=== PATIENT | female | born 1960 | race Caucasian/White ===

== ENCOUNTER → 2019-11-20 | Outpatient (CLI) | payer OTHER ==
[~2019-11-20] MED LIST: AMLODIPINE BESY10 MG PO; ESTRACE42.5 GM VAG; HYDROCODON-ACE1 EAC7 PO; MULTIVITAMINS1 EAC7 PO; NEURONTIN 300M300 M2 PO; OMEPRAZOLE40 MG PO; OXYBUTYNIN 5 MG5 M2 PO
== END ==
LOC: M.LAB 08:59
PROVIDERS: ATTEND Surgery
DX: Z01.812 Encounter for preprocedural laboratory examination (principal); Z20.828 Contact with and (suspected) exposure to other viral communicable diseases

== ENCOUNTER 2019-11-26 06:15 | Observation (INO) | payer OTHER ==
[~2019-11-26] VITALS: Ht 162.6 cm; Wt 97.1 kg
--- NOTE | ~2019-11-26 | OP ---
[facility] [address] [place] [address] OPERATIVE REPORT Name: GENEVIEVE QUEZADA Room: [address] [place]#: [id number] Admission: 11/26/19 Attend Phys: Raf Sykes Discharge: Date of : 62 Report #: [id number] THIS REPORT FOR: //name// cc: Jose Gage John E. DO ~ CC: Jose Sykes DATE OF SERVICE: 11/26/2019 PREOPERATIVE DIAGNOSIS: Hiatal hernia with gastroesophageal reflux disease. POSTOPERATIVE DIAGNOSIS: Hiatal hernia with gastroesophageal reflux disease. OPERATION: Laparoscopic repair of hiatal hernia with mesh implantation with partial fundoplication. SURGEON: Raf Sykes MD ANESTHESIA: General. ESTIMATED BLOOD LOSS: Minimal. SPECIMEN: None. DESCRIPTION OF PROCEDURE: After informed consent was obtained, the patient was brought to the operating room and placed supine. SCDs were placed and working, preoperative antibiotics were administered, general anesthesia was induced. The abdomen was prepped and draped in the usual sterile fashion. A 1 mm incision was made in the left upper quadrant. Veress needle was inserted. Pneumoperitoneum was established. Left periumbilical 12 mm trocar was placed under direct vision. I then placed two right sided trocars and one left-sided trocar all under direct vision. The Nathansen retractor was inserted and reflected the liver anteriorly and superiorly. The pars flaccida was then grasped. It was incised and a LigaSure dissection was carried out superiorly to the kenna, right kenna. The phrenoesophageal ligament was incised with the cautery. The left kenna was identified. I worked to dissect around the distal esophagus. She had hiatal hernia, which was fully reduced. A Stuart drain was placed on the distal esophagus. The short gastric vessels were then ligated by retracting the stomach to the right. The short gastric vessels were ligated using the LigaSure device. There was excellent hemostasis. This allowed for floppy movement of the fundus. A cruroplasty was then performed. This was done with Phasix ST mesh. A 1 [place] [address] OPERATIVE REPORT Name: GENEVIEVE QUEZADA Room: [address] [place].#: [id number] Admission: 11/26/19 Attend Phys: Raf Sykes Discharge: Date of : 62 Report #: [id number] pledgets were cut out and placed on each side of the crura. A 2-0 Ethibond suture was placed through the pledgets and the crura to perform the cruroplasty. This is not too loose or too tight. The fundus of the stomach was then brought posteriorly around the distal esophagus. This was a 270-degree partial wrap. It was fairly loose. Two sutures were placed on each side of the esophagus, 1 cm apart, again this was a 270-degree wrap. The right side of the fundoplication was tacked to the right kenna with a single 2-0 Ethibond suture. The Amy drain was removed. The liver was then placed back into its anatomic position. The ports were removed under direct vision. The 12 mm port site was closed with a [id number] 0 Vicryl. Skin was closed with 4-0 Monocryl. Incisions were dressed with sterile gauze. Sterile dressings were applied. COMPLICATIONS: None. DISPOSITION: The patient was taken to recovery in satisfactory condition. By: [id number] Sykes MD /silver
[2019-11-26 06:40] VITALS: BP 106/62
[2019-11-26 06:46] LABS: HEMATOCRIT 40.7 % (37.0-47.0); MCH 32.3 pg (26.0-34.0); MCHC 34.3 g/dL (28.0-37.0); MCV 94.1 fL (80.0-100.0); RBC 4.33 mil/uL (4.20-5.00); RDW-CV 13.2 % (10.5-14.5); WBC 6.7 thou/uL (4.0-11.0)
[2019-11-26 07:04] LABS: CALCIUM 8.3 mg/dL (8.5-10.1); CREATININE 0.9 mg/dL (0.6-1.3); POTASSIUM 3.9 mmol/L (3.5-5.1)
[2019-11-26 13:10] VITALS: BP 140/71
--- NOTE | 2019-11-26 13:41 | EKG ---
[place] [address] ELECTROCARDIOGRAM REPORT Name: GENEVIEVE QUEZADA Room: [address]#: [id number] Admission: 11/26/19 Attend Phys: Raf Kent Discharge: Date of : 62 Date of Service: 11/26/19 0650 Report #: [id number] THIS REPORT FOR: //name// [facility] Test Date: 2019-11-26 Test Time: 06:50:34 Pat Name: GENEVIEVE QUEZADA Department: Room: [facility] Gender: F [facility]ceiver [facility] 1960 Requested By: Raf Sykes Order Number: [id number] Ysabel MD: Jesus Buckner Measurements Intervals Rebuck Rate: 57 P: 45 DC: 165 QRS: 11 QRSD: 96 T: 18 QT: 456 QTc: 444 Interpretive Statements Sinus rhythm No previous ECG available for comparison Electronically Signed On 11-26-2019 13:41:15 CDT by Jesus Buckner [email or web address] <ELECTRONICALLY SIGNED> By: Jesus Buckner MD, [facility] 11/26/19 1341 0650 0650 Jesus Buckner MD, [facility] /EPI
[2019-11-26 15:39] VITALS: BP 137/73
--- NOTE | 2019-11-26 17:46 | NUR ---
PT A&OX4 VSS. PT C/O L EYE DISCOMFORT. PATCH AND DROPS ORDERED AND APPLIED. PT UP TO RESTROOM SBA, GAIT STEADY. DGTR AT BEDSIDE MOST OF AFTERNOON. NO NAUSEA/VOMITING. NO C/O DIFFICULTY SWALLOWING. PT RESTS IN ROOM WITH CALL LIGHT IN REACH. WILL CONTINUE TO MONITOR.
[2019-11-26 19:45] VITALS: BP 127/65
[2019-11-26 23:43] VITALS: BP 128/74
[2019-11-27 03:42] VITALS: BP 156/76
--- NOTE | 2019-11-27 04:48 | NUR ---
PT AO X4 BEEN OOB WITH STANDBY ASSIST. COMPLAINS OF PAIN IN ABD AND CHEST AND HAD BEEN USING IS AT BEDSIDE ENCOURAGED 10 TIMES PER HOUR. ENCOURAGED TO WALK TO RELEASE GASSES FROM LAPROSCOPIC PROCEDURE. TOLORATING PO PAIN MEDS AND CLEAR LIQUIDS WITHOUT ISSUE. IVF INFUSING. PT HAS COMPLAINED OF LT EYE PAIN AND UPON EXAM PT EYE IS RED AND WATERY WITH QUESTIONABLE SCRATCH TO LT CORNER OF SCLERA OF EYE. TETRACAINE DROPS INSTILLED AND PATCH IN PLACE, THIS GIVES PT RELEIF. LAP SITES CLOSED AND DRY. WCTM
[2019-11-27 07:50] VITALS: BP 130/67
[2019-11-27 12:04] VITALS: BP 130/67
--- NOTE | 2019-11-27 15:42 | NUR ---
PATIENT ALERT AND ORIENTED X4. VSS ON ROOM AIR. COMPLAINT OF PAIN ADDRESSED WITH TYLENOL 3. UP AD JUAN IN THE ROOM TO THE BATHROOM. PATIENT DISCHARGED AT 1450 WITH ALL PERSONAL BELONGINGS, PRESCRIPTION AND DISCHARGE INFORMATION.
== END 2019-11-27 14:50 | disposition home or self-care (01) ==
LOC: M.ORTHSURG 06:15 → M.TBA 06:15 → M.PRE 10:42 → M.ORTHSURG 12:48 → M.PRE 14:11 → M.ORTHSURG 11-27 14:50
PROVIDERS: ADMIT Surgery; ATTEND Surgery
DX: K44.9 Diaphragmatic hernia without obstruction or gangrene (principal); K21.9 Gastro-esophageal reflux disease without esophagitis; F41.9 Anxiety disorder, unspecified; Z79.899 Other long term (current) drug therapy; Z87.891 Personal history of nicotine dependence